=== PATIENT | male | born 1940 | race Caucasian/White ===

== ENCOUNTER 2018-06-01 13:34 | Inpatient (IN) ==
[2018-06-01] MEDS ORDERED: Methocarbamol 750 MG TABLET PO PRN (14:23)
[2018-06-01] MEDS ORDERED: *HR* HYDROcodone/Acet 5/325 mg TABLET PO PRN (14:25)
[2018-06-01] MEDS ORDERED: *HR* Enoxaparin 40 MG/0.4 ML SYRINGE SQ ONE (15:00)
--- NOTE | 2018-06-01 15:06 | Internal Med History&Physical ---
Date of Encounter: 06/01/18 Time of Encounter: 15:01 Assessment and Plan (1) Status post lumbar spinal fusion Current visit: Yes Status: Acute PT and OT to eval and treat. Continue current pain medication. Monitor for improvement. Follow up with surgeon as scheduled. Patient to wear back brace when up. (2) DVT prophylaxis Current visit: Yes Status: Acute lovenox (3) Diabetes type 2, controlled Current visit: Yes Status: Acute Continue insulin. Monitor fingerstick blood sugar. Will adjust per sliding scale. 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 MARTIN is a 78 year old male admitted to inpatient rehab unit status post lumbar fusion at [facility]. Surgery was on May 26. Past medical history includes back problems such as herniated discs with stenosis. Kidney disease, and diabetes type II. Patient did have some urinary retention after surgery and is supposed to continue Wilkerson catheter for one week. Patient lives at home alone with 3 steps to enter house. Family is close by. Patient denies fever, chills, nausea, vomiting or diarrhea. Denies shortness of breath or chest pain. Denies any numbness or tingling in bilateral lower extremities. States pain is controlled with Percocet. Family at bedside during exam. States his bowels moved a little this morning. Maintaining appetite and hydration. Past Med Surg Social Fam HX - Past Medical History Additional medical history: DM, kidney disease, Psychiatric history: other - Past Surgical History Additional surgical history: PLIF - Social History Smoking Status: Never smoker Smokeless Tobacco Status: No Alcohol use: none Drug use: none - Family History Mother Living Status: Hx Family Cancer: Yes (colon ca) Sister Hx Family Cancer: Yes (breast ca) Internal Medicine - H&P: Meds Aspirin Enteric Coated [Aspirin EC] 81 mg PO DAILY 06/01/18 [History] Bactroban Oint 1 tube TP DAILY 06/01/18 [History] Colace 100 mg PO BID 06/01/18 [History] Insulin Glargine [Lantus] 20 units SQ QAM 06/01/18 [History] Linagliptin [Tradjenta] 5 mg PO DAILY 06/01/18 [History] [place] 5-325 mg 06/01/18 [History] Paricalcitol [Zemplar] 1 mcg PO 3XW 06/01/18 [History] Robaxin 750 mg PO Q4H PRN 06/01/18 [History] Tamsulosin HCl [Flomax] 0.4 mg PO QPM 06/01/18 [History] Veltassa 8.4 gm PO DAILY 06/01/18 [History] 3 Allergy/AdvReac Type Severity Reaction Status Date / Time No Known Allergies Allergy Verified 06/01/18 14:23 All Systems PM: A 10-system review of systems was performed and is negative for pertinent findings except as documented above in the HPI. - Constitutional Constitutional: no chills, no fever(s), no night sweats - EENT Eyes: no change in vision, no discharge, no pain, no photophobia Ears: no ear discharge, no ear pain, no tinnitus Nose, mouth and throat: no dysphagia, no nasal discharge, no neck pain, no sore throat - Cardiovascular Cardiovascular ROS IM: no chest pain, no diaphoresis, no dyspnea, no lightheadedness, no palpitations, no syncope - Respiratory Respiratory: no cough, no dyspnea, no wheezing, no excessive phlegm production - Gastrointestinal Gastrointestinal: no abdominal pain, no diarrhea, no hematemesis, no hematochezia, no melena, no nausea, no vomiting - Musculoskeletal Musculoskeletal ROS IM: no numbness, no tingling - Integumentary Integumentary IM: no rash, no unusual bruising - Neurological Neurological ROS: no confusion, no convulsions, no focal weakness, no numbness, no tingling, no tremor(s) - Hematologic/Lymphatic Hematologic/Lymphatic: no easy bruising - Constitutional Vitals: Temp Pulse Resp BP Pulse Ox 98.0 F 77 17 117/74 95 06/01/18 14:30 06/01/18 14:30 06/01/18 14:30 06/01/18 14:30 06/01/18 14:30 General appearance: Present: cooperative, A&O X 3, pleasant, no acute distress, answers questions appropriately - Head Head exam: Present: atraumatic, normocephalic - Eye Eye exam: Present: PERRL, conjuntiva pink, sclera anicteric Pupils: Present: PERRL - Neck Neck exam general surgery: Present: supple, trachea midline. Absent: lymphadenopathy - Respiratory Respiratory exam: Present: CTAB. Absent: accessory muscle use, rales, rhonchi, wheezes - Cardiovascular Cardiovascular exam: Present: RRR, +S1, +S2. Absent: diastolic murmur, gallop, rubs, systolic murmur - GI/Abdominal GI/Abdominal exam: Present: normal bowel sounds, soft, no peritoneal signs. Absent: distended, tenderness - Extremities Exam Extremities exam: Present: warm, radial pulses palpable and symmetrical. Absent : calf tenderness, cyanotic, pedal edema - Incison Comments: Lumbar incision dressing dry and intact. - Neurological Exam Neurological exam: Present: CN II-XII intact, oriented X3, no focal deficits. Absent: pronater drift, facial droop, speech deficit - Skin Skin exam: Present: dry, intact
[2018-06-02 06:03] LABS: Basophils % 0.7 %; Eosinophils # 0.3 K/mcL (0.0-0.6); Eosinophils % 5.5 %; Hematocrit 36.4 % (37.5-50.1); Hemoglobin 11.8 g/dL (12.9-16.9); Immature Granulocytes % 0.5 % (0-4); Mean Corpuscular HGB Conc 32.4 g/dL (31.6-35.5); Mean Corpuscular Hemoglobin 31.4 pg (28.0-33.3); Mean Corpuscular Volume 96.8 fL (83.0-100.0); Mean Platelet Volume 10.5 fL (9.4-12.4); Monocytes # 0.7 K/mcL (0.0-1.3); Monocytes % 12.8 %; Neutrophils # 3.6 K/mcL (1.6-8.9); Platelet Count 311 K/mcL (140-400); Red Blood Count 3.76 M/mcL (4.19-5.50); Red Cell Distribution Width 13.2 % (11.5-14.5); Segmented Neutrophils % 62.5 %
[2018-06-02 06:06] LABS: Prothrombin Time 11.6 Seconds (9.4-12.1)
[2018-06-02 06:26] LABS: Albumin 2.7 g/dL (3.5-5.7); Albumin/Globulin Ratio 1.1 (1.1-2.2); Bilirubin,Total 0.4 mg/dL (0.3-1.0); Calcium 8.2 mg/dL (8.6-10.3); Globulin 2.4 g/dL (2.4-3.5); Potassium 4.6 mEq/L (3.5-5.1); Total Protein 5.1 g/dL (6.4-8.9)
[2018-06-02] MEDS: Aspirin Enteric Coated 81 MG Tablet PO SCH (09:20)
[2018-06-02] MEDS: *HR* HYDROcodone/Acet 5/325 mg TABLET PO PRN ×2 (09:20→18:02)
[2018-06-02] MEDS: VELTASSA 8.4 GM PO SCH (09:23)
[2018-06-02] MEDS: Insulin DETEMIR 100 UNIT/ML X5UNITS SQ SCH (09:24)
[2018-06-02] MEDS ORDERED: *HR* Dextrose 50 % in Water (Syg) 50 ML SYRINGE IVP PRN (11:00)
[2018-06-02] MEDS ORDERED: Dextrose Gel 15 GM/37.5 ML TUBE PO PRN ×2 (11:00)
[2018-06-02] MEDS ORDERED: D5% in Water 1,000 ML IVC PRN (11:00)
[2018-06-02] MEDS ORDERED: Insulin LISPRO 300 UNITS/3 ML VIAL SQ ONE (11:45)
[2018-06-02] MEDS: *HR* Enoxaparin 40 MG/0.4 ML SYRINGE SQ SCH (11:59)
[2018-06-02] MEDS: Insulin LISPRO 300 UNITS/3 ML VIAL SQ SCH ×3 (12:00→22:19)
[2018-06-02] MEDS: amLODIPine 5 MG TABLET PO SCH (12:01)
[2018-06-03] MEDS: *HR* Enoxaparin 40 MG/0.4 ML SYRINGE SQ SCH (05:59)
[2018-06-03] MEDS: *HR* HYDROcodone/Acet 5/325 mg TABLET PO PRN ×3 (06:00→20:58)
[2018-06-03] MEDS: Insulin LISPRO 300 UNITS/3 ML VIAL SQ SCH ×4 (07:32→20:51)
[2018-06-03] MEDS: Aspirin Enteric Coated 81 MG Tablet PO SCH (09:42)
[2018-06-03] MEDS: amLODIPine 5 MG TABLET PO SCH (09:42)
[2018-06-03] MEDS: Insulin DETEMIR 100 UNIT/ML X5UNITS SQ SCH (09:43)
[2018-06-03] MEDS: VELTASSA 8.4 GM PO SCH (09:44)
--- NOTE | 2018-06-03 12:51 | Internal Med Progress Note ---
Addendum entered and electronically signed by Syd Contreras MD 06/04/18 13:59: I have personally performed a face to face evaluation on this patient. I have r eviewed and agree with the care plan. History and Exam by me shows: The patient was evaluated by me yesterday but the note was not complete. This documentation is being completed today for that reason. Still no bowel movement and we will prescribe magnesium citrate for same. Discussed care with other providers and/or nursing. Patient has no complaint of chest discomfort, dyspnea, orthopnea, palpitations, nausea or vomiting, constipation or diarrhea, other changes in bowel habits, di fficulty with urination, rash or itching, or other new complaints, except as mentioned above. Review of systems is otherwise negative. Examination: (Except as mentioned above): General: In no apparent distress. Alert and oriented 3. Nondiaphoretic. Head: Atraumatic and normocephalic. Respiratory: No use of accessory muscles. Lungs are clear throughout. Normal airflow. Cardiovascular: Regular rate and rhythm without murmur appreciated. Abdomen: Bowel sounds are normal. No hepatosplenomegaly mass or tenderness appreciated. Obese and therefore difficult to palpate deeply. Extremities: No cyanosis clubbing or edema. Skin: Warm and non-diaphoretic with no new lesions noted. Original Note: Date of Encounter: 06/03/18 Time of Encounter: 12:49 - Assessment and plan (1) Status post lumbar spinal fusion Current Visit: Yes Status: Acute Assessment and plan: Continue PT and OT. Will follow progress. Pain controlled with current medication. Continue back brace. Follow up with surgeon as scheduled. (2) DVT prophylaxis Current Visit: Yes Status: Acute Assessment and plan: Continue Lovenox. (3) Diabetes type 2, controlled Current Visit: Yes Status: Acute Assessment and plan: Continue insulin per sliding scale. Monitor fingerstick blood sugar. Will adjust medicines as necessary. Continue diabetic diet. Qualifiers: Diabetes mellitus prison insulin use: with rodent exterminator use Diabetes mellitus complication status: without complication Qualified Code(s): E11.9 - Type 2 diabetes mellitus without complications; Z79.4 - senior living (current) use of insulin - Time Spent With Patient less than 15 minutes - Subjective Interval history: participating well with therapy. Ambulating with Walker with standby assist. Bowels moved today. Maintaining appetite and hydration. Pain controlled with current medication. Wearing back brace. - Constitutional Vitals: Temp Pulse Resp BP Pulse Ox 97.6 F 70 16 136/76 96 06/03/18 07:48 06/03/18 07:48 06/03/18 07:48 06/03/18 07:48 06/03/18 07:48 General appearance: Present: cooperative, A&O X 3, pleasant, no acute distress, answers questions appropriately - Head Head exam: Present: atraumatic, normocephalic - Eye Eye exam: Present: PERRL, conjuntiva pink, sclera anicteric Pupils: Present: PERRL - Neck Neck exam general surgery: Present: supple, trachea midline. Absent: lymphadenopathy - Respiratory Respiratory exam: Present: CTAB. Absent: accessory muscle use, rales, rhonchi, wheezes - Cardiovascular Cardiovascular exam: Present: RRR, +S1, +S2. Absent: diastolic murmur, gallop, rubs, systolic murmur - GI/Abdominal GI/Abdominal exam: Present: normal bowel sounds, soft, no peritoneal signs. Absent: distended, tenderness - Extremities Exam Extremities exam: Present: warm, radial pulses palpable and symmetrical. Absent: calf tenderness, cyanotic, pedal edema - Incison Comments: lumbar drsg dry and intact. - Neurological Exam Neurological exam: Present: CN II-XII intact, oriented X3, no focal deficits. Absent: pronater drift, facial droop, speech deficit - Skin Skin exam: Present: dry, intact Internal Medicine: Result - Labs CBC & Chem 7: 06/02/18 05:33 06/02/18 05:33 - ABG Interpretation ABG results: PT/INR, D-dimer PT 11.6 Seconds (9.4-12.1) 06/02/18 05:33 Consult Discharge Plan - Plan Referrals: NONE,PCP [Primary Care Provider] -
[2018-06-04] MEDS: Insulin LISPRO 300 UNITS/3 ML VIAL SQ SCH (12:03)
[2018-06-04 12:49] VITALS: BP 105/58
--- NOTE | 2018-06-04 13:49 | Discharge Summary ---
Addendum entered and electronically signed by Syd Contreras MD 06/04/18 14:01: I have personally performed a face to face evaluation on this patient. I have r eviewed and agree with the care plan. History and Exam by me shows: Patient and daughter's questions about discharge and follow-up were answered. Patient still with no bowel movement and I told him that if he were staying we would give him more mag citrate. However, he understands that he needs to take a full bottle of mag citrate at home and then have use of a laxative to go at least every other day at home. No other acute issues. We discussed his follow-up with urologist and how to use Wilkerson catheter, leg bag at home. We advised him to not take opioids and muscle relaxants together. In addition, we instructed him to try to wean his narcotic prescription as possible. He thinks he will get by with just Tylenol. The above because he had an episode of hypotension this morning when he took opioids and muscle relaxants concomitantly. Discussed care with other providers and/or nursing. Patient has no complaint of chest discomfort, dyspnea, orthopnea, palpitations, nausea or vomiting, constipation or diarrhea, other changes in bowel habits, difficulty with urination, rash or itching, or other new complaints, except as mentioned above. Review of systems is otherwise negative. Examination: (Except as mentioned above): General: In no apparent distress. Alert and oriented 3. Nondiaphoretic. Head: Atraumatic and normocephalic. Respiratory: No use of accessory muscles. Lungs are clear throughout. Normal airflow. Cardiovascular: Regular rate and rhythm without murmur appreciated. Abdomen: Bowel sounds are normal. No hepatosplenomegaly mass or tenderness appreciated. Patient is examined upright in chair and this also limits exam. Extremities: No cyanosis clubbing or edema. Skin: Warm and non-diaphoretic with no new lesions noted. Original Note: Date of Encounter: 06/04/18 Time of Encounter: 13:48 - Discharge Diagnosis (1) Status post lumbar spinal fusion Priority: Primary Status: Acute Comments: Improving. Continue outpatient physical therapy. Continue to wear lumbar brace. Continue current medications. Follow up with surgeon as scheduled. (2) Diabetes type 2, controlled Priority: Secondary Status: Acute Comments: Controlled with current medications. Monitor fingerstick blood sugar. Follow up with PCP. Qualifiers: Diabetes mellitus usp insulin use: with oil heaterman use Diabetes mellitus complication status: without complication Qualified Code(s): E11.9 - Type 2 diabetes mellitus without complications; Z79.4 - long-term (current) use of insulin Hospital course: Mr. MARTIN is a 78 year old male discharging to home status post lumbar fusion. Patient has been modified independent with therapy. Ambulates with forward wheeled walker. Pain controlled with current medication. Follow up with surgeon as scheduled. Discharge discussed with: patient, family, nurse, social work - Time Spent with Patient Total time spent providing and/or coordinating discharge services: Less than 30 minutes - Discharge Medications Home Medications: Aspirin Enteric Coated [Aspirin EC] 81 mg PO DAILY 06/01/18 [History] Bactroban Oint 1 tube TP DAILY 06/01/18 [History] Colace 100 mg PO BID 06/01/18 [History] Insulin Glargine [Lantus] 20 units SQ QAM 06/01/18 [History] Linagliptin [Tradjenta] 5 mg PO DAILY 06/01/18 [History] [place] 5-325 mg 06/01/18 [History] Paricalcitol [Zemplar] 1 mcg PO 3XW 06/01/18 [History] Robaxin 750 mg PO Q4H PRN 06/01/18 [History] Tamsulosin HCl [Flomax] 0.4 mg PO QPM 06/01/18 [History] Veltassa 8.4 gm PO DAILY 06/01/18 [History] amLODIPine [Norvasc] 10 mg PO DAILY 06/02/18 [History] Allergies/Adverse Reactions: Allergy/AdvReac Type Severity Reaction Status Date / Time No Known Allergies Allergy Verified 06/01/18 14:23 Date of admission: 06/01/18 13:34 Primary care physician: PCP NONE Consults: 06/01/18 14:29 Consult to Occupational Therapy [CONS] Routine Comment: Evaluate, develop and implement POC Reason for Consult: PLIF Does patient have active BEDREST order?: No Is patient medically & hemodynamically stable?: Yes Consult to Physical Medicine/Rehab [CONS] Routine Reason for Consult: Please evaluate and manage therapies' guidelines and recommend pathway to reconditioning. Call Completed: Yes Consult to Physical Therapy [CONS] Routine Comment: Evaluate, develop and implement POC Reason for Consult: PLIF Does patient have active BEDREST order?: No Is patient medically & hemodynamically stable?: Yes 06/01/18 14:31 Consult to Recreational Therapy [CONS] Routine Comment: 06/01/18 14:38 Consult to Nutrition [CONS] Routine Comment: Consulting Provider: NUTRITION Reason for Dietary Consult: MST Score Discharging clinician: Syd Contreras Anticipated date of discharge: 06/04/18 - Constitutional Vitals: Temp Pulse Resp BP Pulse Ox 98.4 F 82 16 105/58 96 06/04/18 12:48 06/04/18 12:48 06/04/18 12:48 06/04/18 12:48 06/04/18 12:48 General appearance: Present: cooperative, A&O X 3, pleasant, no acute distress, answers questions appropriately - Head Head exam: Present: atraumatic, normocephalic - Eye Eye exam: Present: PERRL, conjuntiva pink, sclera anicteric Pupils: Present: PERRL - Neck Neck exam general surgery: Present: supple, trachea midline. Absent: lymphadenopathy - Respiratory Respiratory exam: Present: CTAB. Absent: accessory muscle use, rales, rhonchi, wheezes - Cardiovascular Cardiovascular exam: Present: RRR, +S1, +S2. Absent: diastolic murmur, gallop, rubs, systolic murmur - GI/Abdominal GI/Abdominal exam: Present: normal bowel sounds, soft, no peritoneal signs. Absent: distended, tenderness - Extremities Exam Extremities exam: Present: warm, radial pulses palpable and symmetrical. Absent: calf tenderness, cyanotic, pedal edema - Incison Comments: lumbar spine incision drsg dry and intact. - Neurological Exam Neurological exam: Present: CN II-XII intact, oriented X3, no focal deficits. Absent: pronater drift, facial droop, speech deficit - Skin Skin exam: Present: dry, intact - Patient Status Disposition: Home, Self-Care Condition: Good Functional capacity at discharge: uses cane/walker Overall status at discharge: patient is progressing back to baseline - Discharge Instructions Instructions: Urinary Leg Bag (GEN), Lumbar Brace (GEN) Follow Up With: Uriel hebert [Other] - 06/10/18 9:45 am corine hendrix [Other] - 06/12/18 1:15 pm Roberto Horn MD [Partnered Physician] - 06/17/18 10:30 am (follow up appointment with urology) NONE,PCP [Primary Care Provider] - - Diet and Activity Activity: as per physical therapy Diet: diabetic diet
[2018-06-04] MEDS ORDERED: Aspirin Enteric Coated 81 MG Tablet PO ONE (15:34)
[2018-06-04] MEDS ORDERED: *HR* HYDROcodone/Acet 5/325 mg TABLET PO ONE (15:34)
[2018-06-04] MEDS ORDERED: Methocarbamol 750 MG TABLET PO ONE (15:34)
[2018-06-04] MEDS ORDERED: amLODIPine 5 MG TABLET PO ONE (15:34)
[2018-06-04] MEDS ORDERED: *HR* Enoxaparin 40 MG/0.4 ML SYRINGE SQ ONE (15:34)
== END 2018-06-04 15:35 | disposition home or self-care (01) | DRG 950 ==
LOC: INPGRE 13:34